=== PATIENT | male | born 1975 | race Caucasian/White ===

== ENCOUNTER 2021-07-18 08:00 | Outpatient (RCR) | payer BC, SELFPAY ==
[2021-07-18 11:05] VITALS: BP 114/78; PULSE 76; RESP 20; TEMP 35.8; O2SAT 94
[2021-07-18] MEDS: diphenhydrAMINE HCl CAP 25 MG CAPSULE PO (11:11)
[2021-07-18] MEDS: FAMOTIDINE 20 MG TABLET PO (11:11)
[2021-07-18] MEDS: ACETAMINOPHEN 325 MG TABLET 650 MG PO (11:11)
[2021-07-18 12:39] VITALS: BP 124/66
--- NOTE | 2021-07-19 10:54 | PC.NURSE ---
Called and spoke to Mr. Guerrero and he stated he feels pretty good except for a headache and maybe being dehydrated. He stated he is not drinking much, so I recommended if he can not get fluids in he needs to go to the ER, for hydration. He verbalized the understanding. He has no other questions at this time.
== END 2021-07-18 17:00 ==
LOC: AMCINF 08:00
PROVIDERS: PCP Physician Assistant Medical; Visit Provider Internal Medicine Hematology & Oncology
DX: U07.1 COVID-19 (principal)
CPT/HCPCS: A9270; M0243; Q0243

== ENCOUNTER 2023-04-08 14:12 | Outpatient (NON) | payer BC, SELFPAY | END 2023-04-08 14:13 | disposition home or self-care (01) | LOC: ANHLAB 04-09 14:13 | PROVIDERS: PCP Physician Assistant Medical; Visit Provider Nurse Practitioner | DX: C44.1192 Basal cell carcinoma of skin of left lower eyelid, including canthus (principal) | CPT/HCPCS: 88305 ==

== ENCOUNTER 2023-05-02 03:15 | Day surgery (SDC) | payer BC, SELFPAY ==
[2023-04-23 17:56] VITALS: BMI 33.0
--- NOTE | 2023-04-23 17:57 | PC.NURSE ---
Report to the Outpatient Waiting Room, entrance under the green pavilion located off [facility], at time ___0600____ on date ____5-29-11___. Planned Procedure Time: 729___. Time changes happen often and if your time is changed the preop area will call you the afternoon before. - You and your visitor will be asked to self-screen and do not enter if you have any COVID symptoms. - A mask is optional within the hospital at this time. Patients may have clear liquids (water, carbonated beverages, clear teas, apple juice) until 3 hours prior to surgery with a maximum of 20 ounces. - No food from midnight until time of surgery - Take the following medications with a SIP of water the morning of surgery: n/a DO NOT STOP ANY OF YOUR OTHER PRESCRIPTION MEDICATIONS PRIOR TO SURGERY ?EXCEPT THE FOLLOWING Medications to discontinue per physician n/a Date to take last dose n/a Please no make-up, nail nauruan, hairspray, perfume, deodorant, or body powder the day of surgery. No jewelry (including any body piercings) or valuables the day of surgery, leave them at home. Please take a shower or bath the night before, or the morning of, surgery with an antibacterial soap. Wear comfortable, loose fitting clothing. Children are encouraged to wear pajamas. - Jewelry must be removed prior to entering the operating room. Rings and piercings that are not removed may be cut off. - The hospital will not accept responsibility for valuables. - Please leave all valuables, including medications, at home the day of surgery. If you are going home after surgery, a licensed hog driver must drive you home. - NO public transportation without another adult if you receive anesthesia. - We recommend that an adult stay with you for 24 hours following discharge. - We also recommend that you do not drive, make important decision, drink alcoholic beverages, or take any drugs that were not prescribed by your health care provider for at least 24 hours after your discharge time. Follow any additional instructions given to you from your surgeon. If you or anyone in your household have experienced Covid symptoms in the past week, please notify your surgeon or the nurse liaison at the phone number below for possible testing. Telephone instructions given to Toni (patient) and asked if any additional questions and then verbalized understanding. Patient advised to call surgeon office or pre surgery nurse liaison [phone] if any additional questions.
--- NOTE | 2023-05-01 13:26 | WPDANESEPPF ---
Anes - Initial Pre Proc Eval Procedure: Operation Date: 05/02/23 07:30 Proposed Procedures p Excision of Basal Cell Carcinoma Left Lower Eyelid with Frozen Section - Gilson Linton MD Date/Time: 05/01/23 13:26 Surgeon: Gilson Linton MD Pre Op Diagnosis: basal cell carcinoma left lower eyelid Patient Data Age: 48 Gender: M Height: 1.85 m Weight: 113.6 kg Allergies Allergy/AdvReac Type Severity Reaction Status Date / Time No Known Allergies Allergy Verified 05/01/23 10:43 Home Medications Medication Instructions Recorded Confirmed Type No Home Medications 04/23/23 04/23/23 History Patient hx anesthesia problems: none Family hx anesthesia problems: none Results Review: All pre-operative results and documents have been reviewed as part of the pre-operative evaluation. 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 Surgical History Surgical History History of ankle surgery History of carpal tunnel release History of elbow surgery History of mandibular surgery Hx of arthroscopy of right knee 2002 Family History Family History Father Skin cancer (melanoma) Grandparent Skin cancer (melanoma) Other High cholesterol Social History Social History Smoking status: Never smoker Alcohol intake: current Drinks per week: 1 Substance use: never Substance use type: does not use Lack of Transportation: No Lack of Food: Never True Current Housing: I Have Housing Concerned About Future Housing: No Difficulty Paying Gas/Electric Bills: No Difficulty Paying for Meds: No Currently Unemployed: No Education: Associate Degree Living arrangements: with family 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/Education: 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 Informed Consent: The patient's anesthetic plan and its attendant risks and benefits were discussed with the patient/family/POA. Questions were solicited and answers provided to the satisfaction of the patient/family/POA.
[2023-05-02] VITALS (8 sets, daily range): BP systolic 126–139; BP diastolic 83–90; PULSE 66–74; RESP 12–16; TEMP 36.3; O2SAT 93–99
--- NOTE | 2023-05-02 07:10 | P.HPUP_ITS ---
History and Physical Update Update Date/Time: 05/02/23 07:10 History and Physical has been reviewed, including an updated exam of the patient. Will proceed as scheduled. He states on his left cheek for many years he has had a lesion evaluated that bleeds occasionally when shaves and has been told it is benign. There has been no change. Discussed I will eval in the OR and he has provided consent if noted worrisome to proceed with biopsy. He understands despite best efforts exami nation is never 100% accurate and skin cancers can be missed even in an operating room with magnification. Risks, benefits, and alternatives have been discussed and questions answered. Patient agrees to proceed with procedure.
--- NOTE | 2023-05-02 07:13 | W.PM.PROC2 ---
Procedure Note - Detailed Date of Procedure 05/02/23 Pre-op Diagnosis basal cell carcinoma left lower eyelid Post-op Diagnosis Same Procedure Performed Excision left lower eyelid BCC 0.6 cm with 0.8cm closure Surgeon Gilson Linton MD Anesthesia General Findings BCC with frozen section left lower eyelid - pathology with clear margins. No left check worrisome lesion identified in the OR with magnification. Description of Procedure Preoperative Risks, benefits, alternatives were discussed in extensive detail. I want to be very realistic about the risks involved as well as expectations. Reviewed consent in detail. Discussed aftercare and what to monitor for. Made sure I answered all questions answered to satisfaction and consent obtained. He was taken to the operating room placed suppine on the operating room table. Anesthesia provided by anesthesia. Prepped and draped in a standard sterile fashion. Eye irrigated with BSS Surgical time out was taken. Tetracaine eye drops installed and a corneal protector placed. 1% lidocaine and 0.25% bupivacaine with epi was used to anesthetize locally. Lesion was excised and sent to pathology until we had clear margins including tarsal margin. The tarsal place was closed with 6-0 Vicryl followed by 6-0 Nylon. Corneal protector removed and irrigated with BSS. Tolerated well. Estimated Blood Loss 5 Drains No Packing No Pathology Yes (Left lower eyelid BCC) Complications No immediate complications Condition Stable Disposition PACU
[2023-05-02] MEDS: ceFAZolin 2 GM/D5W 50 ML 2 GM/50 ML BAG IVPB (07:28)
[2023-05-02] MEDS: LACTATED RINGERS 1,000 ML 30 ML IV CONT (07:30)
[2023-05-02] MEDS: LIDO 1%/EPINEPHRINE 1:100,000 20 ML VIAL INFILTRATE (08:02)
[2023-05-02] MEDS: BUPivacaine HCL 0.25% PF 30 ML VIAL INFILTRATE (08:03)
--- NOTE | 2023-05-02 08:10 | SUR.OPER ---
Frozen section sent to Pathology per SHREYAS Hilario. Specimen received by Genny in Path at 07:57. Pathologist will call with results.
--- NOTE | 2023-05-02 08:24 | SUR.OPER ---
Per Dr. Curry margins on specimen are clear.
== END 2023-05-02 09:50 | disposition home or self-care (01) ==
PROVIDERS: PCP Physician Assistant Medical; Visit Provider Surgery Plastic and Reconstructive Surgery
PROC: (CPT 11641; principal; 2023-05-02 07:30)
DX: C44.1192 Basal cell carcinoma of skin of left lower eyelid, including canthus (principal); G47.33 Obstructive sleep apnea (adult) (pediatric); E66.9 Obesity, unspecified; Z68.34 Body mass index [BMI] 34.0-34.9, adult
CPT/HCPCS: 11641; 12051; 88305; 88331; 88332; A9270; J0690; J1100; J2250; J2405; J2704; J3010; J7120

== ENCOUNTER 2023-05-27 13:02 | Outpatient (NON) | payer BC, SELFPAY | END 2023-05-27 13:03 | disposition home or self-care (01) | LOC: ANHLAB 05-28 13:06 | PROVIDERS: PCP Physician Assistant Medical; Visit Provider Nurse Practitioner | DX: D48.5 Neoplasm of uncertain behavior of skin (principal) | CPT/HCPCS: 88305 ==

== ENCOUNTER 2024-06-15 13:43 | Outpatient (CLI) | payer BC, SELFPAY ==
[2024-06-15 15:27] LABS: Basophils Percent Auto 0.1 % (0.2-1.2); Hematocrit 44.7 % (42.0-52.0); Hemoglobin 15.8 g/dL (14.0-18.0); Immature Granulocyte Absolute 0.08 K/mm3 (0.00-0.031); Immature Granulocyte Percent A 0.4 % (0-0.5); Lymphocytes Absolute Auto 0.91 K/mm3 (0.9-3.2); Lymphocytes Percent Auto 4.7 % (18.3-44.2); Mean Corpuscular HGB Conc 35.3 g/dl (32-36); Mean Corpuscular Hemoglobin 30.7 pg (26-34); Mean Platelet Volume 9.1 fl (7.4-10.4); Monocytes Absolute Auto 0.5 K/mm3 (0.1-0.6); Monocytes Percent Auto 2.8 % (2.6-8.5); Neutrophils Absolute Auto 17.8 K/mm3 (1.3-6.7); Platelet Count Result 272 k/mm3 (150-375); Red Blood Count 5.14 M/mm3 (4.6-6.20); Red Cell Distribution Width 13.1 % (11.5-14.5); White Blood Count 19.4 K/mm3 (4.5-10.0)
[2024-06-15 15:33] LABS: Urine Cotinine NEGATIVE
[2024-06-15 15:35] LABS: Albumin Level 4.8 g/dL (3.5-5.1); Anion Gap 14 mmol/L (4-12); Blood Urea Nitrogen 16 mg/dL (9-20); Carbon Dioxide 21 mmol/L (22-30); Chloride 103 mmol/L (98-107); Estimated Glomerular Filt Rate > 60; Glucose 187 mg/dL (65-110); Potassium 3.9 mmol/L (3.4-5.0); Sodium 138 mmol/L (137-145)
[2024-06-15 15:35] LABS: Add Urine Microscopic? NO; Appearance Urine Clear (Clear); Bilirubin Urine Negative (Negative); Blood Urine Negative (Negative); Color Urine Yellow (Yellow); Glucose Urine UA Trace mg/dL (Negative); Ketones Urine Trace mg/dL (Negative); Leukocyte Esterase Ur Negative LEU/UL (Negative); Nitrate Urine Negative (Negative); Protein Urine Negative (Negative); Specific Grav Ur 1.023 (1.001-1.035); Urobilinogen Urine 0.2 mg/dL (<2.0); pH Urine 5.5 (5.0-9.0)
[2024-06-15 15:40] LABS: Prothrombin Time 13.2 Seconds (11.1-14.7)
[2024-06-15 15:42] LABS: Partial Thromboplastin Time 23.4 Seconds (22.3-36.8)
[2024-06-15 15:47] LABS: Platelet Estimate Adequate (Adequate); Schistocytes None Seen
[2024-06-15 16:02] LABS: Hemoglobin A1C 5.5 % (<5.7)
[2024-06-15 16:40] LABS: MRSA (PCR) NOT DETECTED (NOT DETECTE)
== END 2024-06-15 13:44 | disposition home or self-care (01) ==
PROVIDERS: Visit Provider Orthopaedic Surgery
DX: M17.11 Unilateral primary osteoarthritis, right knee (principal)
CPT/HCPCS: 80048; 80307; 81003; 82040; 83036; 85025; 85610; 85730; 87641

== ENCOUNTER 2024-06-29 00:33 | Day surgery (SDC) | payer BC, SELFPAY ==
[2024-06-15 13:57] VITALS: BMI 36.6
--- NOTE | 2024-06-15 14:38 | PC.NURSE ---
Report to the Outpatient Waiting Room, entrance under the green pavilion located off [facility], at time _10 AM on date06/29/24 . Planned Procedure Time: _1200 NOON .? Time changes happen often and if your time is changed the preop area will call you the afternoon before. - You and your visitor will be asked to self-screen and do not enter if you have any COVID symptoms. Please call surgeon if you need to reschedule. - A mask is optional within the hospital at this time. Patients may have clear liquids (water, carbonated beverages, clear teas, apple juice) until 3 hours prior to surgery( 9 AM) with a maximum of 20 ounces. - No food from midnight until time of surgery and no smoking - Infants may have breast milk until 4 hours before surgery, infant formula 6 hours prior to surgery. - Children will be allowed to drink immediately following surgery.? If applicable, please bring a bottle or sippy cup to assist with drinking. Juice, water, soda, and popsicles are readily available.? For infants on formula, please bring formula the day of surgery.? Pacifiers are allowed. Take only the following medications with a SIP of water on the morning of surgery: __GABAPENTIN DO NOT STOP ANY OF YOUR OTHER PRESCRIPTION MEDICATIONS PRIOR TO SURGERY EXCEPT THE FOLLOWING Medications to discontinue per physician _HOLD ___DICLOFENAC AND ADVIL__PER DR BUSCH MAY TAKE TYLENOL IF NEEDED FOR PAIN Please no make-up, nail nepali, hairspray, perfume, deodorant, or body powder the day of surgery.? No jewelry (including any body piercings) or valuables the day of surgery, leave them at home.? Please take a shower or bath the night before, or the morning of, surgery with an antibacterial soap.? Wear comfortable, loose fitting clothing.? Children are encouraged to wear pajamas. - Jewelry must be removed prior to entering the operating room.? Rings and piercings that are not removed may be cut off. - The hospital will not accept responsibility for valuables.? - Please leave all valuables, including medications, at home the day of surgery. If you are going home after surgery, a licensed cab driver must drive you home.? - NO public transportation without another adult if you receive anesthesia. - We recommend that an adult stay with you for 24 hours following discharge. - We also recommend that you do not drive, make important decision, drink alcoholic beverages, or take any drugs that were not prescribed by your health care provider for at least 24 hours after your discharge time. For Pediatric surgeries, we recommend two adults accompany the child home. Follow any additional instructions given to you from your surgeon. VERBAL AND WRITTEN instructions given to _PATIENT and asked if any additional questions and then verbalized understanding. Patient advised to call surgeon office or pre surgery nurse liaison [phone] if any additional questions.
[2024-06-15 14:55] VITALS: BP 136/92; PULSE 92; RESP 18; TEMP 37.3; O2SAT 98
[2024-06-29] VITALS (15 sets, daily range): BP systolic 111–158; BP diastolic 78–98; PULSE 75–93; RESP 10–19; TEMP 35.7–37; O2SAT 93–100
--- NOTE | ~2024-06-29 | XR_ITS ---
EXAMINATION: [id number] DATE: 06/29/2024 15:04 INDICATION: Postoperative evaluation following right total knee arthroplasty. TECHNIQUE: Anteroposterior and lateral views of the right knee were obtained. COMPARISON: 05/01/2023 FINDINGS: Right total knee arthroplasty without patellar resurfacing appears well seated and in near anatomic a lignment. Unchanged heterotopic ossicle along the deep margin of the tibial insertion of the distal p atellar tendon. No fractures identified. Expected postoperative subcutaneous and intra-articular gas. The prior loose osteochondral body at the suprapatellar pouch is been removed. IMPRESSION: 1. Right total knee arthroplasty, negative for postoperative purposes. Reviewed, dictated and finalized at location B. 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
[2024-06-29] MEDS: ACETAMINOPHEN 500 MG TABLET 1000 MG PO (10:35)
--- NOTE | 2024-06-29 10:36 | WPDHPUPDATE1 ---
History and Physical Update Update Date/Time: 06/29/24 10:36 History and Physical has been reviewed, including an updated exam of the patient. There are NO changes in the patient's condition. Risks, benefits, and alternatives have been discussed and questions answered. Patient agrees to proceed with procedure.
[2024-06-29] MEDS: LACTATED RINGERS 1,000 ML 30 ML IV CONT ×2 (10:40→14:48)
[2024-06-29] MEDS: TRANEXAMIC ACID 1,000MG/ISO100 1,000 MG/100 ML BAG 200 MG IVPB (10:40)
--- NOTE | 2024-06-29 11:30 | WPDANESEPPF ---
Anes - Initial Pre Proc Eval Procedure: Operation Date: 06/29/24 12:00 Proposed Procedures p Right Total Knee Arthroplasty - Onel Henry MD Date/Time: 06/29/24 11:30 Surgeon: Onel Henry MD Pre Op Diagnosis: right knee djd Patient Data Age: 49 Gender: M Height: 1.85 m Weight: 122.8 kg Last Vital Signs Temp 97.6 F 06/29/24 10:00 Pulse 86 06/29/24 10:00 Resp 18 06/29/24 10:00 BP 118/92 H 06/29/24 10:00 Pulse Ox 98 06/29/24 10:00 O2 Del Method Room Air 06/29/24 10:00 Allergies Allergy/AdvReac Type Severity Reaction Status Date / Time No Known Allergies Allergy Verified 06/29/24 10:03 Home Medications Medication Instructions Recorded Confirmed Type diclofenac sodium 75 mg 75 mg PO BID #60 tabs 05/10/24 06/29/24 Rx tablet,delayed release cetirizine 10 mg tablet (Zyrtec) 10 mg PO DAILY 06/15/24 06/29/24 History gabapentin 300 mg capsule 300 mg PO TID 06/15/24 06/29/24 History ibuprofen 200 mg tablet (Advil) 400 mg PO Q6H PRN Pain 06/15/24 06/29/24 History Laboratory Tests 06/29/24 10:27 WBC 8.0 K/mm3 (4.5-10.0) Blood Type A Negative Antibody Screen Pending Patient hx anesthesia problems: none Family hx anesthesia problems: none Results Review: All pre-operative results and documents have been reviewed as part of the pre-operative evaluation. 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 Surgical History Surgical History History of ankle surgery History of carpal tunnel release History of elbow surgery History of mandibular surgery Hx of arthroscopy of right knee 2002 Family History Family History Father Skin cancer (melanoma) Grandparent Skin cancer (melanoma) Other High cholesterol Social History Social History Smoking status: Never smoker Additional smoking assessment comments: DENIES ANY FORM OF TOBACCO USE Alcohol intake: current Drinks per week: 1 Substance use: never Substance use type: does not use Lack of Transportation: No Lack of Food: Never True Current Housing: I Have Housing Concerned About Future Housing: No Difficulty Paying Gas/Electric Bills: No Difficulty Paying for Meds: No Currently Unemployed: No Education: Associate Degree Living arrangements: with family 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 ) Neurological: alert and oriented Last oral intake: >/= 8 hours ASA classification: II Emergent: no Anesthetic plan: proceed Anesthesia type and monitoring: general LMA and standard monitoring Results Review: All pre-operative results and documents have been reviewed as part of the pre-operative evaluation. ALON on CPAP. Informed Consent: The patient's anesthetic plan and its attendant risks and benefits were discussed with the patient/family/POA. Questions were solicited and answers provided to the satisfaction of the patient/family/POA.
[2024-06-29] MEDS: ceFAZolin 3 GM/D5W 100 ML 100 ML IVPB (12:13)
--- NOTE | 2024-06-29 12:14 | WPDANESPNB ---
Anes - Peripheral Nerve Block Date/Time: 06/29/24 12:14 I have discussed with the patient/family/POA the placement of a peripheral nerve block for post-operative pain management, including associated risks, benefits, complications, and side effects. Alternative methods of post-operative analgesia were detailed. Questions were solicited and answers provided to the satisfaction of the patient/family/POA. Time-Out: A pre-procedural Time-Out was completed immediately before starting the procedure and confirmed: Patient Identification, Site, Procedure, Patient Position and the Availability of Requisite Equipment. Clinical Indications: Acute post-operative pain management requested by the operative surgeon. Nerve Block Insertion Note Anes-nerve block: adductor canal right Patient position: supine Needle: 22 gauge, stimulating, insulated echogenic needle. Needle length: 80 mm Technique: ultrasound Injectate: other (Bupiv 0.5% 15 mls. ) Observations: tolerated well Complications: none Procedure start time:: 1202 Procedure end time:: 1210
[2024-06-29] MEDS: SODIUM CHLORIDE 0.9% IV 37.7 ML, MORPHINE SULFATE INJ (*CRX) 2 MG, ROPivacaine HCL 1% 2... INFILTRATE (12:53)
[2024-06-29] MEDS: KETOROLAC 15 MG/ML VIAL (*BKC) IV PUSH ×2 (14:19→17:19)
--- NOTE | 2024-06-29 14:53 | W.PM.PROC2 ---
Procedure Note - Detailed Date of Procedure 06/29/24 Pre-op Diagnosis right knee djd Post-op Diagnosis Same Procedure Performed R TKA Surgeon Onel Henry MD Anesthesia General Description of Procedure THE RIGHT KNEE WAS PREPPED AND DRAPED IN THE STERILE FASHION. THERE WAS A 10 DEGREE FLEXION CONTRACTURE. A MIDLINE SKIN INCISION WAS MADE. A MEDIAL PARAPATELLAR ARTHROTOMY WAS MADE. THE PATELLA WAS EVERTED. THERE WAS TRICOMPARTMENT DJD. AN INTRAMEDULLARY ROSALVA WAS PLACED IN THE FEMUR. A DISTAL FEMORAL CUT WAS MADE IN 5 DEGREES OF VALGUS REMOVING APPROXIMATELY 9 MM OF BONE FROM THE DISTAL FEMUR. THE FEMUR WAS SIZED TO 7. A 7 FEMORAL CUTTING BLOCK WAS PLACED IN 3 DEGREES OF EXTERNAL ROTATION AND IN ALIGNMENT WITH CED'S LINE AND THE TRANSEPICONDYLAR AXIS. ANTERIOR POSTERIOR AND CHAMFER CUTS WERE MADE. THE CUTS WERE EXCELLENT. NEXT AN INTRAMEDULLARY CUTTING GUIDE WAS PLACED IN THE TIBIA. A TRANS TIBIAL CUT WAS MADE ALONG THE LONG AXIS OF THE TIBIA. APPROXIMATELY 10 MM OF BONE WAS REMOVED FROM THE HIGH SIDE OF THE TIBIA. THE TIBIA WAS THEN PLANED TO A SMOOTH SURFACE. POSTERIOR FEMORAL OSTEOPHYTES WERE REMOVED FROM THE FEMORAL CONDYLES. A 7 TIBIAL TRIAL WAS PLACED IN ALIGNMENT WITH THE 1/3 MEDIAL ASPECT OF THE TIBIAL TUBERCLE. THEN A 7 FEMORAL TRIAL COMPONENT WAS PLACED. BOTH HAD EXCELLENT FITS. EVENTUALLY AN 11 MM CR POLYETHYLENE TRIAL COMPONENT WAS PLACED. THE KNEE WAS TAKEN THROUGH A RANGE OF MOTION. THE KNEE CAME OUT TO FULL EXTENSION. THERE WAS NO ABNORMAL TILT TO THE PATELLA. THERE WAS GOOD A/P AND VARUS/VALGUS STABILITY. THERE WAS NO EXCESSIVE ROLL BACK WITH FLEXION. THE TRIAL COMPONENTS WERE REMOVED. THEN A PIOTR TRIATHLON 7 FEMORAL COMPONENT AND 7 TIBIAL COMPONENT WITH AN 11 CR POLYETHYLENE COMPONENT WERE PRESS FIT INTO PLACE. THE KNEE WAS TAKEN THROUGH A ROM AGAIN AND FOUND TO BE STABLE WITH NO PATELLA TILT NO EXCESSIVE ROLL BACK WITH FLEXION AND GOOD STABILITY WITH COMPLETE AND FULL EXTENSION. THE KNEE WAS IRRIGATED WITH STERILE BETADINE AND WATER FOR ABOUT 3 MINUTES. THE BLEEDERS WERE CAUTERIZED. THE ARTHROTOMY WAS REPAIRED WITH NUMBER 1 VICRYL. THE SUB CUTANEOUS LAYER WITH 2-0 VICRYL AND THE SKIN WITH 3-0 STRATAFIX AND DERMABOND. A STERILE DRESSING WAS APPLIED. PATIENT WAS EXTUBATED. Estimated Blood Loss -150.0 Pathology None sent Complications No immediate complications Condition Stable Disposition PACU
[2024-06-29] MEDS: fentaNYL CITRATE INJ (*CRX) 100 MCG/2 ML VIAL 25 MCG IV PUSH ×6 (14:54→15:28)
--- NOTE | 2024-06-29 16:26 | ADMGEN ---
This patient, Toni Guerrero, was admitted to [facility] Surg Room 321-01. Patient/family oriented to hospital policies and general routines including ID bracelet, bed and alarms, visiting hours, pain management, procedures, bathroom and other care routines, personal items, smoking policy, room service/diet, and visiting hours. Information on how to activate the Rapid Response Team has been discussed. Patient/Family are encouraged to report perceived risks to care and to ask questions if they do not understand what they are told or what they should do.
[2024-06-29] MEDS: GABAPENTIN 300 MG CAPSULE PO (17:20)
[2024-06-29] MEDS: FAMOTIDINE 20 MG TABLET PO (20:05)
[2024-06-29] MEDS: ceFAZolin 2 GM/D5W 50 ML 2 GM/50 ML BAG IVPB (20:06)
[2024-06-29] MEDS: ASPIRIN 325 MG ENTERIC TABLET PO (20:06)
[2024-06-30 03:43] VITALS: BP 130/77; PULSE 98; RESP 18; TEMP 36.6; O2SAT 97
[2024-06-30] MEDS: ceFAZolin 2 GM/D5W 50 ML 2 GM/50 ML BAG IVPB ×2 (04:43→11:02)
[2024-06-30] MEDS: KETOROLAC 15 MG/ML VIAL (*BKC) IV PUSH (05:41)
[2024-06-30 06:53] LABS: Basophils Percent Auto 0.1 % (0.2-1.2); Eosinophils Percent Auto 0.1 % (0-4.4); Hematocrit 38.5 % (42.0-52.0); Hemoglobin 13.5 g/dL (14.0-18.0); Immature Granulocyte Percent A 0.5 % (0-0.5); Lymphocytes Absolute Auto 1.16 K/mm3 (0.9-3.2); Lymphocytes Percent Auto 6.1 % (18.3-44.2); Mean Corpuscular HGB Conc 35.1 g/dl (32-36); Mean Corpuscular Hemoglobin 31.3 pg (26-34); Mean Corpuscular Volume 89.1 fl (80-100); Mean Platelet Volume 9.1 fl (7.4-10.4); Monocytes Absolute Auto 1.4 K/mm3 (0.1-0.6); Monocytes Percent Auto 7.2 % (2.6-8.5); Neutrophils Absolute Auto 16.3 K/mm3 (1.3-6.7); Platelet Count Result 234 k/mm3 (150-375); Red Blood Count 4.32 M/mm3 (4.6-6.20); Red Cell Distribution Width 13.2 % (11.5-14.5)
[2024-06-30 07:06] LABS: Anion Gap 4 mmol/L (4-12); Blood Urea Nitrogen 10 mg/dL (9-20); Calcium 8.6 mg/dL (8.4-10.2); Carbon Dioxide 27 mmol/L (22-30); Chloride 105 mmol/L (98-107); Estimated CRCL calculation 111 ml/min; Estimated Glomerular Filt Rate > 60; Glucose 111 mg/dL (65-110); Potassium 4.1 mmol/L (3.4-5.0); Sodium 136 mmol/L (137-145)
[2024-06-30] MEDS: SENNA/DOCUSATE SODIUM TABLET 2 TAB PO ×2 (08:20→16:05)
[2024-06-30] MEDS: ASPIRIN 325 MG ENTERIC TABLET PO (08:20)
[2024-06-30] MEDS: FAMOTIDINE 20 MG TABLET PO (08:20)
[2024-06-30] MEDS: GABAPENTIN 300 MG CAPSULE PO ×3 (08:21→16:05)
[2024-06-30 10:06] VITALS: BP 134/91; PULSE 85; RESP 20; TEMP 36.5; O2SAT 99
[2024-06-30 12:00] VITALS: BP 148/77; PULSE 90; RESP 22; TEMP 37.3; O2SAT 99
--- NOTE | 2024-06-30 13:58 | WPDANESPN ---
Anes - Prog Note Post-Op Date/Time: 06/30/24 13:58 Cardiovascular status: normal Respiratory status: normal Airway patency: baseline Mental status: baseline Post-Op hydration status: normal Vital Signs: Last Vital Signs Temp 37.3 C 06/30/24 12:00 Pulse 90 06/30/24 12:00 Resp 22 H 06/30/24 12:00 BP 148/77 H 06/30/24 12:00 Pulse Ox 99 06/30/24 12:00 O2 Del Method Room Air 06/30/24 07:45 O2 Flow Rate 2 06/29/24 16:49 Pain Score (VAS): 0 I/O: Intake & Output 06/29/24 06/30/24 06/30/24 23:59 07:59 15:59 Intake Total 287 50 390 Output Total 500 600 Balance 287 -450 -210 Laboratory Tests 06/30/24 06:30 06/30/24 06:30 06/30/24 06:30 WBC 19.0 H RBC 4.32 L Hgb 13.5 L Hct 38.5 L MCV 89.1 MCH 31.3 MCHC 35.1 RDW 13.2 Plt Count 234 MPV 9.1 Immature Gran % (Auto) 0.5 Neut % (Auto) 86.0 H Lymph % (Auto) 6.1 L [place] % (Auto) 7.2 Eos % (Auto) 0.1 Baso % (Auto) 0.1 L Lymph # (Auto) 1.16 [place] # (Auto) 1.4 H Eos # (Auto) 0.0 Baso # (Auto) 0.0 Abs Immat Gran (auto) 0.10 H Absolute Neuts (auto) 16.3 H Absolute Nucleated RBC 0.000 Nucleated RBC % 0.0 Sodium 136 L Potassium 4.1 Chloride 105 Carbon Dioxide 27 Anion Gap 4 BUN 10 D Creatinine 1.00 Estim Creat Clear Calc 111 Estimated GFR > 60 Glucose 111 H Calcium 8.6 Post-procedural complaints: none Patient Feedback: Patient satisfied with anesthetic care.
[2024-06-30 14:06] VITALS: BP 148/77; PULSE 90; RESP 22; TEMP 37.2; O2SAT 100
[2024-06-30 16:05] VITALS: TEMP 37.9
[2024-06-30] MEDS: ACETAMINOPHEN 500 MG TABLET PO (16:05)
--- NOTE | 2024-06-30 16:15 | PM.DS ---
DS: Admitting Diagnosis Discharge Date 06/30/24 Admitting Diagnosis RIGHT KNEE DJD DS: Discharge Diagnosis Discharge Diagnosis (1) Right knee DJD: Qualifiers: Osteoarthritis type: primary Qualified Code(s): M17.11 - Unilateral primary osteoarthritis, right knee Code(s): M17.11 - Unilateral primary osteoarthritis, right knee Status: Acute Assessment and Plan: POD 1 DOING WELL. HE DENIES ANY CALF OT THIGH PAIN. OK TO DC HOME HE WILL START PT NEXT WEEK. HE WAS INSTRUCTED ON DRESSING CHANGES AND THE NEED FOR DAILY ASPIRIN FOR 3 WEEKS FOR DVT PROPHYLAXIS. HE WILL F/U IN 3 WEEKS DS: Summary Hospital Course Reason for hospitalization: RIGHT TKA Hospital Course: PATIENT WAS ADMITTED S/P TOTAL KNEE ARTHROPLASTY FOR POSTOPERATIVE MEDICAL MANAGEMENT, PAIN CONTROL AND MOBILIZATION WITH PHYSICAL AND OCCUPATIONAL THERAPY. THE PATIENT PROGRESSED WELL WITH PT/OT. LABS AND VITALS REMAINED STABLE AND PAIN WELL CONTROLLED. THE PATIENT HAS BEEN CLEARED TO BE DISCHARGED HOME. FOLLOW UP APPOINTMENT SCHEDULED. DISCHARGE INSTRUCTIONS DISCUSSED AT LENGTH WITH THE PATIENT. MEDICATIONS REVIEWED. Status at Discharge Cognitive/behavioral status at discharge: STABLE Time Spent with Patient Time attestation: Total time spent providing and/or coordinating discharge services: Exam Extrem: Other: VSS AFEBRILE DRESSING NV INTACT NEG HOMANS SIGN, CALF AND THIGH SOFT NON TENDER DS: Data Data Completed and Pending Labs on day of discharge: Labs from last 24 hours 06/30/24 06:30 WBC 19.0 H RBC 4.32 L Hgb 13.5 L Hct 38.5 L MCV 89.1 MCH 31.3 MCHC 35.1 RDW 13.2 Plt Count 234 MPV 9.1 Immature Gran % (Auto) 0.5 Neut % (Auto) 86.0 H Lymph % (Auto) 6.1 L [place] % (Auto) 7.2 Eos % (Auto) 0.1 Baso % (Auto) 0.1 L Lymph # (Auto) 1.16 [place] # (Auto) 1.4 H Eos # (Auto) 0.0 Baso # (Auto) 0.0 Abs Immat Gran (auto) 0.10 H Absolute Neuts (auto) 16.3 H Absolute Nucleated RBC 0.000 Nucleated RBC % 0.0 Sodium 136 L Potassium 4.1 Chloride 105 Carbon Dioxide 27 Anion Gap 4 BUN 10 D Creatinine 1.00 Estim Creat Clear Calc 111 Estimated GFR > 60 Glucose 111 H Calcium 8.6 Procedures/Treatments: RIGHT TKA Discharge Plan Discharge Patient Disposition: Home, Self-Care Discharge Instructions: ONEL HENRY M.D. [facility] [address] [place] [address] POST OPERATIVE DISCHARGE INSTRUCTIONS FOLLOWING TOTAL KNEE REPLACEMENT SURGERY ? Your dressing will be changed prior to your discharge. You will be sent home with one additional dressing to be changed on post op day 7 by the home health RN. Your kandy will be removed on the 14th day after surgery and steri-strips will be placed. Please practice good hand hygiene and do not touch your incision in order to prevent infection. ? You may shower with your dressing but do not submerge in a bath tub. ? Do not drive or operate machinery until you are released by Dr. Henry. ? Do not walk without a walker for any reason until you are released by Dr. Henry. ? Continue to use your ice machine. Please use a towel or pillow case to protect your skin before applying your ice machine. ? Do NOT place a pillow under your knee. You may use a pillow from the calf down if needed. This will prevent a flexion contracture postoperatively. ? You may begin use of your CPM machine at home if you have been given one pre-operatively. DO NOT USE WHILE YOU ARE SLEEPING. ? Your first post op appointment was sent to you via mail preoperatively. If you have any questions or are unable to make your appointment, please contact our office for scheduling questions. ? Your medications have been sent to your pharmacy. You have been sent home with pain medication. We have also sent you with a stool softener as narcotics can cause constipation. Please keep this in mind during your postoperative recovery. If you are not experiencing regular bowel movements, please contact our office for further instruction. ? Please contact our office with any questions/concerns regarding your knee at [phone]. TAKE 2 ADULT STRENGTH (325 MG) ASPIRIN A DAY FOR BLOOD CLOT PREVENTION Patient Instructions: Total Knee Replacement (GEN) Follow-up/Referrals: Onel Henry MD [Physician] - Discharge Medications: New oxycodone-acetaminophen [Percocet] 5-325 mg tablet 1 tablet PO Q6H PRN (Reason: pain) Qty: 40 0RF Continued ibuprofen [Advil] 200 mg Tablet 400 mg PO Q6H PRN (Reason: Pain) gabapentin 300 mg capsule 300 mg PO TID cetirizine [Zyrtec] 10 mg Tablet 10 mg PO DAILY diclofenac sodium 75 mg tablet,delayed release (DR/EC) 75 mg PO BID Qty: 60 1RF Patient Comments: PT STATES LAST DOSE 2 WKS AGO
[2024-06-30 16:42] VITALS: TEMP 37.8
== END 2024-06-30 16:50 | disposition home or self-care (01) ==
LOC: ANHSURGERY 09:47 → ANH3MEDSUR 16:23
PROVIDERS: Anesthesiology; Visit Provider Orthopaedic Surgery
PROC: (CPT 27447; principal; 2024-06-29 12:00)
DX: M17.11 Unilateral primary osteoarthritis, right knee (principal); G89.18 Other acute postprocedural pain; G47.33 Obstructive sleep apnea (adult) (pediatric); E66.9 Obesity, unspecified; Z68.35 Body mass index [BMI] 35.0-35.9, adult
CPT/HCPCS: 27447; 64447; 36415; 73560; 80048; 85025; 85048; 86850; 86900; 86901; 97110; 97161; 97165; 97530; A9270; C1713; C1776; J0171; J0690; J1100; J1171; J1885; J2250; J2270; J2405; J2704; J2795; J3010; J7120

== ENCOUNTER 2025-01-10 13:45 | Outpatient (CLI) | payer BC, SELFPAY ==
--- OUTSIDE RECORDS SUMMARY | 2025-01-10 14:04 | XMS_ITS | Referral Summary ---
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 2-4 times a month 06/18/2022 Q2: How many drinks containi ng alcohol do you have on a typical day when you are drinking? 1 or 2 06/18/2022 Q3: How often do you have si x or more drinks on one occasion? 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 file Not on file Last Filed Vital Signs Vital Sign Reading Time Taken Comments Blood Pressure 107/64 07/01/2022 12:05 PM AIR DUCT MECHANIC Pulse 69 07/01/2022 12:10 PM AIR DUCT MECHANIC Temperature 36 C (96.8 F) 07/01/2022 12:10 PM AIR DUCT MECHANIC Respiratory Rate 14 07/01/2022 12:10 PM AIR DUCT MECHANIC Oxygen Saturation 97% 07/01/2022 12:10 PM AIR DUCT MECHANIC Inhaled Oxygen Concentration - - Weight 113.4 kg (250 lb) 02/05/2024 10:31 AM CDT Height 185.4 cm (6' 1) 03/29/2024 2:54 PM CDT Body Mass Index 32.98 02/05/2024 10:31 AM CDT Plan of Treatment Not on file Insurance [employer] [place] [employer] [place] [facility] Care Teams Cushion Padder Relationship Specialty Start Date End Date Laura James PA [address] [place] [id number] PCP - General Physician Provider Relations Representative 04/08/22
--- OUTSIDE RECORDS SUMMARY | 2025-01-10 14:04 | XMS_ITS | Clinical Summary ---
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 Overview (05/28/2022): Added automatically from request for surgery [id number] Localized osteoarthrosis 07/20/2010 Cubital tunnel syndrome 07/20/2010 Surgical History Surgery Date Site/Laterality Comments KNEE ARTHROSCOPY W/ LATERAL RELEASE 08/11/2002 - 003 Right MANDIBLE FRACTURE SURGERY 08/11/1998 - 08/10/1999 VASECTOMY 08/11/2011 - 08/10/2012 ANKLE FRACTURE SURGERY 08/11/2013 - 08/10/2014 Left CARPAL TUNNEL RELEASE 08/11/2008 - 08/10/2009 Right ELBOW SURGERY 08/11/2009 - 08/10/2010 Right FRACTURE SURGERY 1998 FL UPPER GI AIR CONTRAST W KUB 02/27/2024 Left Medical History Medical History Date Comments Arthritis 2004 Allergic rhinitis ALON (obstructive sleep apnea) we ars CPAP Family History Medical History Relation Name Comments No Known Problems Father Alzheimer's disease Maternal Grandfather Blane Dolan Diabetes Maternal Grandfather Blane Dolan Hearing loss Maternal Grandfather Blane Dolan Cancer Maternal Grandmother Thais Dolan No Known Problems Mother Cancer Paternal Grandfather Dale Guerrero Diabetes Paternal Grandfather Dale Guerrero Heart attack Paternal Grandfather Dale Guerrero Vision loss Paternal Grandfather Dale Guerrero Anesthesia problems Neg Hx Relation Name Status Comments Father Alive Maternal Grandfather Blane Dolan Maternal Grandmother Thais Dolan Mother Alive Paternal Grandfather Dale Guerrero Social History Tobacco Use Types Packs/Day Years [...] on file Legal Sex Male 1:50 AM GLASSBLOWER Gender Identity Male 04/23/2022 12:20 PM CDT Sexual Orientation Straight 04/23/2022 12 :20 PM CDT 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 file Not on file Obstetrics History Last Filed Vital Signs Vital Sign Reading Time Taken Comments Blood Pressure 107/64 07/01/2022 12:05 PM GLASSBLOWER Pulse 69 07/01/2022 12:10 PM GLASSBLOWER Temperature 36 C (96.8 F) 07/01/2022 12:10 PM GLASSBLOWER Respiratory Rate 14 07/01/2022 12:10 PM GLASSBLOWER Oxygen Saturation 97% 07/01/2022 12:10 PM GLASSBLOWER Inhaled Oxygen Concentration - - Weight 113.4 kg (250 lb) 02/05/2024 10:31 AM CDT Height 185.4 cm (6' 1) 03/29/2024 2:54 PM CDT Body Mass Index 32.98 02/05/2024 10:31 AM CDT Plan of Treatment Health Maintenance Due Date Last Done Comments Colon Cancer Screening-Colonoscopy 1977 Depression Screening 1977 Hepatitis C Screening 1977 DTaP/Tdap/Td Vaccine (1 - Tdap) 1988 Hepatitis B Screening 1995 Regular Well Visit/Exam 18-64 1995 Influenza Vaccine (Season Ended) 2025 Pneumococcal vaccine <65 Aged Out No longer eligible based on patient's age to complete this topic Insurance [address] [place] [address] [employer] [address] [place] [address] [facility] Care Teams Supervisor Pipeline Relationship Specialty Start Date End Date Laura James PA [address] [place] [address] [phone] PCP - General Physician Family Practice Nurse Practitioner 04/08/22
--- OUTSIDE RECORDS SUMMARY | 2025-01-10 14:04 | XMS_ITS | Clinical Summary ---
Author Organization [facility] Address [address] [place] [address] Care Team Providers Care Certified Medical Transcriptionist Name Role Phone Phyllis Friedman PA-C Primary Care Provider [phone] Source Comments [facility],non-owned Affiliates and Associated Physician Practices is amultiple site organization consisting of ambulatory clinics and hospital sitesin [place], [place], [place] and [place]. This disclosure is being madepursuant to the Care Everywhere program and may not contain all information available regarding this patient. Last updated 18.[facility] Allergies No known active allergies Medications * Be aware that medications may not be up to date on this document. Alwaysverify current medications with the patient. diclofenac sodium EC (Voltaren) 75 MG tablet 1 (one) tablet 4 Active CPAP Use as directed Active sulfamethoxazol e-trimethoprim (Bactrim DS; Septra DS) 800-160 MG tablet Take 1 (one) tablet by mouth 2 times daily for 10 days 20 tablet 5 01/16/20 25 Active gabapentin (Neurontin) 300 MG capsule 1 (one) capsule 4 01/06/20 25 Discontinu ed(Tx Complete) predniSONE (Deltasone) 20 MG tablet 2 tabs QD for 4 days, then 1 tab QD for 4 days. Then 1/2 tab QD for 4 days. Disp QS 1 tablet 4 01/06/20 25 Discontinu ed(Tx Complete) albuterol HFA (ProAir HFA) 108 (90 Base) MCG/ACT inhaler Inhale 2 (two) puffs by mouth every 4 hours as needed 8.5 g 4 01/06/20 Discontinu ed(Tx Complete) benzonatate (Tessalon Perles) 100 MG capsule Take 1 (one) capsule by mouth 3 times daily as needed for Cough 30 capsule 4 01/06/20 Discontinu ed(Tx Complete) Active Problems Problem Noted Date Diagnosed Date Numbness-left foot, going to wash U for back con cerns 05/05/2024 ALON (obstructive sleep apnea) 05/05/2024 Encounters Date Type Department Care Team Description 01/05/2025 4:00 PM CDT Office Visit [facility] - Family Medicine [address] [place] [phone] Phyllis Friedman PA-C Primary osteoarthritis of left knee (Primary Dx); Bug bite, initial encounter-INFECTED; Preop general physical exam from Last 3 Months Social History Tobacco Use Types Packs/Day Years Used Date Smoking Tobacco: Never Smokeless Tobacco: Never Tobacco Cessation:Counseling Given: Not Answered Alcohol Use Standard Drinks/Week Comments Yes 0 (1 standard drink = 0.6 oz pur e alcohol) PHQ-2 Answer Date Recorded Patient Health Questionnaire-2 Score 0 01/05/2025 Sex and Gender Information Value Date Recorded Sex Assigned at Not on file Legal Sex Male 6:34 AM CDT Gender Identity Not on file Sexual Orientation Not on file Last Filed Vital Signs Vital Sign Reading Time Taken Comments Blood Pressure 112/80 01/05/2025 3:41 PM CDT Pulse 90 01/05/2025 3:41 PM CDT Temperature 36.8 C (98.2 F) 01/05/2025 3:41 PM CDT Respiratory Rate - - Oxygen Saturation 99% 01/05/2025 3:41 PM CDT Inhaled Oxygen Concentration - - Weight 128.8 kg (284 lb) 01/05/2025 3:41 PM CDT Height 185.4 cm (6' 1) 01/05/2025 3:41 PM CDT Body Mass Index 37.47 01/05/2025 3:41 PM CDT Plan of Treatment Upcoming Encounters Date Type Department Care Team (Late st Contact Info) Description 01/12/2025 3:45 PM CDT Office Visit [facility] - Family Medicine [address] [place] [phone] Phyllis Friedman PA-C [address] [place] [phone] Health Maintenance Due Date Last Done Comments COLOGUARD (AGES 45-75) - COLON CA SCREENING 1977 COLON MONITORING 1977 COLONOSCOPY - COLON CA SCREENING 1977 CT COLONOGRAPHY - COLON CA SCREENING 1977 Colorectal Cancer Screening 1977 FIT - COLON CA SCREENING 1977 FLEX SIG - COLON CA SCREENING 1977 HIV SCREENING 1992 HEPATITIS C SCREENING 03/17/1995 DTAP/TDAP/TD VACCINES (1 - Tdap) 1996 HEPATITIS B VACCINE (1 of 3 - 19+ 3-dose series) 1996 COVID-19 VACCINE (1 - season) 2024 INFLUENZA VACCINE (Season Ended) 2025 ZOSTER VACCINE (1 of 2) 2027 SCREENING FOR DIABETES 09/21/2027 , 06/16/2024, 06/16/2024, Additional history exists LIPID TESTING 05/07/2029 05/07/2024 DEPRESSION SCREENING Completed 01/05/2025, 05/05/20 24 HIB VACCINE Aged Out No longer eligi ble based on patient's age to complete this topic HPV VACCINE Aged Out No longer eligi ble based on patient's age to complete this topic MENINGOCOCCAL (Group B) VACCINE SHARED DECISION-MAKING Aged Out No longer eligible based on patient's age to complete this topic MENINGOCOCCAL GROUPS A/C/Y/W VACCINE Aged Out No longer eligible based on patient's age to complete this topic PNEUMOCOCCAL VACCINE Aged Out No long er eligible based on patient's age to complete this topic Procedures Procedure Name Priority Date/Time Associated Diagnosis Comments BASIC METABOLIC PANEL (CALCIUM TOTAL) Routine 09/21/2024 3:42 PM CHEMICAL RECLAMATION EQUIPMENT OPERATOR Hypertension, essential LIPID PROFILE Routine 05/07/2024 3:37 PM CDT Routine health maintenance from Last 3 Months or Most Recently Relevant to Health Maintenance Results * (ABNORMAL) BASIC METABOLIC PANEL (CALCIUM TOTAL) (09/21/2024 3:42 PM [facility]) [facility] Glucose 114 70 - 125 mg/dL 09/21/2024 5:[address] [facility] Sodium 138 136 - 145 mmol/L 09/21/2024 5:[address] [facility] Potassium 4.0 3.4 - 5.1 mmol/L 09/21/2024 5:[address] [facility] Chloride 110(H) 98 - 107 mmol/L 09/21/2024 5:[address] [facility] CO2 20(L) 22 - 29 mmol/L 09/21/2024 5:[address] [facility] Calcium 8.92 8.4 - 10.2 mg/dL 09/21/2024 5:[address] [facility] Anion Gap 8 6 - 16 mmol/L 09/21/2024 5:[address] [facility] BUN 14.2 8.4 - 25.7 mg/dL 09/21/2024 5:[address] [facility] Creatinine 0.85 0.72 - 1.25 mg/dL 09/21/2024 5:[address] [facility] eGFR >90 >90 mL/min/1.7 3m2 09/21/2024 5:[address] [facility] Comment:The GFR result was c alculated using the updated CKD-EPI Creatinine Equation (2020). Blood BLOOD SPECIMEN / Unknown Venipuncture / Unknown 09/21/2024 3:42 PM CHEMICAL RECLAMATION EQUIPMENT OPERATOR 09/21/2024 3:42 PM [facility] us Onel Henry MD LAB - CHEMISTRY ORDERABLES Fi nal Result Performing Organization Address City/State/[facility] Co de Phone Number [facility] [address] * (ABNORMAL) LIPID PROFILE (05/07/2024 3:37 PM CDT) [facility] Cholesterol 252(H) <200 mg/dL 05/07/2024 5:06 PM CDT [facility] Triglycerides 289(H) <150 mg/dL 05/07/2024 5:06 PM T [facility] HDL Cholesterol 31(L) >40 mg/dL 5:06 PM T [facility] Chol HDL Ratio 8.1(H) 1.0 - 6.0 05/07/2024 5:06 PM T [facility] LDL Calculated 163(H) 65 - 130 mg/dL 05/07/2024 5:06 PM T [facility] VLDL Calculated 58(H) <=30 mg/dL 5:06 PM T [facility] Blood BLOOD SPECIMEN / Unknown Venipuncture / Unknown 05/07/2024 3:37 PM CDT 05/07/2024 3:37 PM CDT Narrative [facility] - 05/07/2024 5:06 PM CDT Lipid Profile Comment: CHOLESTEROL LEVEL..................CLINICAL INTERPRETATION LESS THAN 200 MG/DL..............................DESIRABLE 200-239 MG/DL..............................BORDERLINE HIGH GREATER THAN 240 MG/DL................................HIGH LDL-CHOLESTEROL LEVEL..............CLINICAL INTERPRETATION LESS THAN 100 MG/DL................................OPTIMAL 100-129 MG/DL.................................NEAR OPTIMAL GREATER THAN 160 MG/DL...........................HIGH RISK HDL RISK LEVEL GREATER THEN 60 MG/DL............................DECREASED 40-60 MG/DL........................................AVERAGE LESS THAN 40 MG/DL...............................INCREASED TRIGLYCERIDE LEVEL..................CLINICAL INTERPRETATION LESS THAN 150 MG/DL...............................DESIRABLE 150-199 MG/DL...............................BORDERLINE HIGH 200-499 MG/DL..........................................HIGH GREATER THAN 500..................................VERY HIGH THE NATIONAL CHOLESTEROL EDUCATION PROGRAM HAS SET THE ABOVE GUIDELINES (REFERANCE VALUES) FOR CHOLESTEROL AND HDL. RISK ASSOCIATED WITH CHOLESTEROL/HDL RATIOS RISK....................MALE RATIO.............FEMALE RATIO 1/2 AVERAGE.................<3.4.......................<3.3 LOW RISK.................... 4.0 ...................... 3.8 AVERAGE..................... 5.0 ...................... 4.5 2X AVERAGE.................. 9.5 ...................... 7.0 3X AVERAGE...................>23........................>11 Phyllis Friedman PA-C LAB - CHEMISTRY ORDERABLES Fin al Result [facility] [address] from Last 3 Months or Most Recently Relevant to Health Maintenance Insurance [facility] [employer] Care Teams Certified Medical Transcriptionist Relationship Specialty Start Date End Date Phyllis Friedman PA-C [address] [place] [phone] PCP - General Physician Notching Machine Operator 05/05/24
[2025-01-10 15:05] LABS: Add Urine Microscopic? NO; Appearance Urine Clear (Clear); Bilirubin Urine Negative (Negative); Blood Urine Negative (Negative); Color Urine Yellow (Yellow); Glucose Urine UA Negative (Negative); Ketones Urine Trace mg/dL (Negative); Leukocyte Esterase Ur Negative LEU/UL (Negative); Nitrate Urine Negative (Negative); Protein Urine Negative (Negative); pH Urine 5.5 (5.0-9.0)
[2025-01-10 15:06] LABS: Basophils Percent Auto 0.6 % (0.2-1.2); Eosinophils Absolute Auto 0.2 K/mm3 (0-0.3); Eosinophils Percent Auto 2.7 % (0-4.4); Hemoglobin 15.3 g/dL (14.0-18.0); Immature Granulocyte Absolute 0.07 K/mm3 (0.00-0.031); Lymphocytes Absolute Auto 1.38 K/mm3 (0.9-3.2); Lymphocytes Percent Auto 20.4 % (18.3-44.2); Mean Corpuscular HGB Conc 33.3 g/dl (32-36); Mean Corpuscular Hemoglobin 30.2 pg (26-34); Mean Corpuscular Volume 90.9 fl (80-100); Mean Platelet Volume 9.3 fl (7.4-10.4); Monocytes Absolute Auto 0.8 K/mm3 (0.1-0.6); Monocytes Percent Auto 11.6 % (2.6-8.5); Neutrophils Absolute Auto 4.3 K/mm3 (1.3-6.7); Neutrophils Percent Auto 63.7 % (45.5-73.1); Platelet Count Result 250 k/mm3 (150-375); Red Blood Count 5.06 M/mm3 (4.6-6.20); Red Cell Distribution Width 13.7 % (11.5-14.5); White Blood Count 6.8 K/mm3 (4.5-10.0)
[2025-01-10 15:15] LABS: INR 1.1
[2025-01-10 15:16] LABS: Partial Thromboplastin Time 27.9 Seconds (22.3-36.8)
[2025-01-10 15:19] LABS: Albumin Level 4.8 g/dL (3.5-5.1); Anion Gap 8 mmol/L (4-12); Blood Urea Nitrogen 16 mg/dL (9-20); Calcium 9.4 mg/dL (8.4-10.2); Carbon Dioxide 26 mmol/L (22-30); Chloride 105 mmol/L (98-107); Estimated Glomerular Filt Rate 53; Glucose 94 mg/dL (65-110); Potassium 4.6 mmol/L (3.4-5.0); Sodium 139 mmol/L (137-145)
[2025-01-10 15:23] LABS: Hemoglobin A1C 4.9 % (<5.7)
[2025-01-10 15:35] LABS: Urine Cotinine NEGATIVE
[2025-01-10 16:11] LABS: MRSA (PCR) NOT DETECTED (NOT DETECTE)
== END 2025-01-10 13:46 | disposition home or self-care (01) ==
LOC: ANHSURGERY 13:49
PROVIDERS: Visit Provider Orthopaedic Surgery
DX: M17.12 Unilateral primary osteoarthritis, left knee (principal); Z01.818 Encounter for other preprocedural examination
CPT/HCPCS: 80048; 80307; 81003; 82040; 83036; 85025; 85610; 85730; 86850; 86900; 86901; 87641

== ENCOUNTER 2025-01-19 01:30 | Day surgery (SDC) | payer BC, SELFPAY ==
--- NOTE | 2025-01-10 13:49 | PC.NURSE ---
Report to the Outpatient Waiting Room, entrance under the green pavilion located off [facility], at time _6 AM on date __01/19/25 . Planned Procedure Time: _7:30 AM .? Time changes happen often and if your time is changed the preop area will call you the afternoon before. - You and your visitor will be asked to self-screen and do not enter if you have any COVID symptoms. Please call surgeon if you need to reschedule. - A mask is optional within the hospital at this time. Patients may have clear liquids (water, carbonated beverages, clear teas, apple juice) until 3 hours prior to surgery ( 4:30 AM) with a maximum of 20 ounces. - No food from midnight until time of surgery and no smoking, or chewing tobacco (or any form of nicotine). No chewing gum, candy or mints. - Take only the following medications with a SIP of water on the morning of surgery: __NONE DO NOT STOP ANY OF YOUR OTHER PRESCRIPTION MEDICATIONS PRIOR TO SURGERY EXCEPT THE FOLLOWING Hold all vitamins and supplements for 3 days per anesthesiologist.LAST DOSE Medications to discontinue per physician HOLD DICLOFENAC PER DR BUSCH MAY TAKE TYLENOL IF NEEDED FOR PAIN Please no make-up, nail indonesian, hairspray, perfume, deodorant, or body powder the day of surgery.? No jewelry (including any body piercings) or valuables the day of surgery, leave them at home.? Please take a shower or bath the night before, or the morning of, surgery with an antibacterial soap.? Wear comfortable, loose fitting clothing.? Children are encouraged to wear pajamas. - Jewelry must be removed prior to entering the operating room.? Rings and piercings that are not removed may be cut off. - The hospital will not accept responsibility for valuables.? - Please leave all valuables, including medications, at home the day of surgery. If you are going home after surgery, a licensed reach lift truck driver must drive you home.? - NO public transportation without another adult if you receive anesthesia. - We recommend that an adult stay with you for 24 hours following discharge. - We also recommend that you do not drive, make important decision, drink alcoholic beverages, or take any drugs that were not prescribed by your health care provider for at least 24 hours after your discharge time. For Pediatric surgeries, we recommend two adults accompany the child home. Follow any additional instructions given to you from your surgeon. VERBAL AND WRITTEN instructions given to _PATIENT and asked if any additional questions and then verbalized understanding. Patient advised to call surgeon office or pre surgery nurse liaison [phone] if any additional questions.
[2025-01-10 14:30] VITALS: BP 127/91; PULSE 83; RESP 18; TEMP 37.1; O2SAT 97; BMI 36.9
[2025-01-19] VITALS (13 sets, daily range): BP systolic 100–130; BP diastolic 60–90; PULSE 68–89; RESP 10–18; TEMP 35.9–36.8; O2SAT 93–100
--- NOTE | ~2025-01-19 | XR_ITS ---
EXAMINATION: [id number] DATE: 01/19/2025 10:21 INDICATION: Postoperative evaluation following left total knee arthroplasty. TECHNIQUE: Anteroposterior and lateral views of the left knee were obtained. COMPARISON: None. FINDINGS: Left total knee arthroplasty without patellar resurfacing appears well seated and in near anatomic al ignment. No fractures identified. 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 Expected postoperative subc utaneous and intra-articular gas. IMPRESSION: 1. Left total knee arthroplasty, negative for postoperative purposes. Reviewed, dictated and finalized at location A.
--- OUTSIDE RECORDS SUMMARY | 2025-01-19 01:33 | XMS_ITS | Referral Summary ---
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 Overview (05/28/2022): Added automatically from request for surgery [id number] Localized osteoarthrosis 07/20/2010 Cubital tunnel syndrome 07/20/2010 [...] on file Legal Sex Male 1:50 AM ARCHIVAL RECORDS CLERK Gender Identity Male 04/23/2022 12:20 PM CDT Sexual Orientation Straight 04/23/2022 12 :20 PM CDT 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 file Not on file Last Filed Vital Signs Vital Sign Reading Time Taken Comments Blood Pressure 107/64 07/01/2022 12:05 PM ARCHIVAL RECORDS CLERK Pulse 69 07/01/2022 12:10 PM ARCHIVAL RECORDS CLERK Temperature 36 C (96.8 F) 07/01/2022 12:10 PM ARCHIVAL RECORDS CLERK Respiratory Rate 14 07/01/2022 12:10 PM ARCHIVAL RECORDS CLERK Oxygen Saturation 97% 07/01/2022 12:10 PM ARCHIVAL RECORDS CLERK Inhaled Oxygen Concentration - - Weight 113.4 kg (250 lb) 02/05/2024 10:31 AM CDT Height 185.4 cm (6' 1) 03/29/2024 2:54 PM CDT Body Mass Index 32.98 02/05/2024 10:31 AM CDT Plan of Treatment Not on file Insurance Fair value [place] [facility] Care Teams Pet Care Attendant Relationship Specialty Start Date End Date Laura James PA [address] [place] [id number] PCP - General Physician Safety Deposit Clerk 04/08/22
--- OUTSIDE RECORDS SUMMARY | 2025-01-19 01:33 | XMS_ITS | Clinical Summary ---
Author Organization [facility] Address [address] [place] [address] Care Team Providers Care Gravel Roofer Name Role Phone Phyllis Friedman PA-C Primary Care Provider [phone] Source Comments [facility],non-owned Affiliates and Associated Physician Practices is amultiple site organization consisting of ambulatory clinics and hospital sitesin [place], [place], [place] and [place]. This disclosure is being madepursuant to the Care Everywhere program and may not contain all information available regarding this patient. Last updated 18.[facility] Allergies No known active allergies Medications * Be aware that medications may not be up to date on this document. Alwaysverify current medications with the patient. diclofenac sodium EC (Voltaren) 75 MG tablet 1 (one) tablet 4 Active CPAP Use as directed Active gabapentin (Neurontin) 300 MG capsule 1 (one) capsule 4 01/06/20 25 Discontinue d(Tx Complete) predniSONE (Deltasone) 20 MG tablet 2 tabs QD for 4 days, then 1 tab QD for 4 days. Then 1/2 tab QD for 4 days. Disp QS 1 tablet 4 01/06/20 25 Discontinue d(Tx Complete) albuterol HFA (ProAir HFA) 108 (90 Base) MCG/ACT inhaler Inhale 2 (two) puffs by mouth every 4 hours as needed 8.5 g 4 01/06/20 25 Discontinue d(Tx Complete) benzonatate (Tessalon Perles) 100 MG capsule Take 1 (one) capsule by mouth 3 times daily as needed for Cough 30 capsule 4 01/06/20 25 Discontinue d(Tx Complete) sulfamethoxazol e-trimethoprim (Bactrim DS; Septra DS) 800-160 MG tablet Take 1 (one) tablet by mouth 2 times daily for 10 days 20 tablet 5 01/16/20 25 Active Problems Problem Noted Date Diagnosed Date Numbness-left foot, going to wash U for back con cerns 05/05/2024 ALON (obstructive sleep apnea) 05/05/2024 Encounters Date Type Department Care Team Description 01/12/2025 12:45 PM CDT Office Visit [address] [address] Phyllis Friedman PA-C Primary osteoarthritis of left knee (Primary Dx); Preop general physical exam; Bug bite, subsequent encounter-resolved 01/05/2025 4:00 PM CDT Office Visit [address] [id number] Phyllis Friedman PA-C Primary osteoarthritis of left [...] Date Recorded Patient Health Questionnaire-2 Score 0 01/12/2025 Sex and Gender Information Value Date Recorded Sex Assigned at Not on file Legal Sex Male 6:34 AM CDT Gender Identity Not on file Sexual Orientation Not on file Last Filed Vital Signs Vital Sign Reading Time Taken Comments Blood Pressure 138/86 01/12/2025 12:49 PM CDT Pulse 93 01/12/2025 12:49 PM CDT Temperature 36.8 C (98.2 F) 01/12/2025 12:49 PM CDT Respiratory Rate - - Oxygen Saturation 98% 01/12/2025 12:49 PM CDT Inhaled Oxygen Concentration - - Weight 126.6 kg (279 lb) 01/12/2025 12:49 PM CDT Height 185.4 cm (6' 1) 01/12/2025 12:49 PM CDT Body Mass Index 36.81 01/12/2025 12:49 PM CDT Plan of Treatment Health Maintenance Due [...] PANEL (CALCIUM TOTAL) Routine 09/21/2024 3:42 PM 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 Hypertension, essential LIPID PROFILE Routine 05/07/2024 3:37 PM CDT Routine health maintenance from Last 3 Months or Most Recently Relevant to Health Maintenance Results * (ABNORMAL) BASIC METABOLIC PANEL (CALCIUM TOTAL) (09/21/2024 3:42 PM [facility]) Pathologist [facility] Glucose 114 70 - 125 mg/dL 09/21/2024 5:40 PM [facility] Sodium 138 136 - 145 mmol/L 09/21/2024 5:40 PM [facility] Potassium 4.0 3.4 - 5.1 mmol/L 09/21/2024 5:40 PM [facility] Chloride 110(H) 98 - 107 mmol/L 09/21/2024 5:40 PM [facility] CO2 20(L) 22 - 29 mmol/L 09/21/2024 5:40 PM [facility] Calcium 8.92 8.4 - 10.2 mg/dL 09/21/2024 5:40 PM [facility] Anion Gap 8 6 - 16 mmol/L 09/21/2024 5:40 PM [facility] BUN 14.2 8.4 - 25.7 mg/dL 09/21/2024 5:40 PM [facility] Creatinine 0.85 0.72 - 1.25 mg/dL 09/21/2024 5:40 PM [facility] eGFR >90 >90 mL/min/1.7 3m2 09/21/2024 5:40 PM [facility] Comment:The GFR result was c alculated using the updated CKD-EPI Creatinine Equation (2020). Blood BLOOD SPECIMEN / Unknown Venipuncture / Unknown 09/21/2024 3:42 PM 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 09/21/2024 3:42 PM [facility] us Onel Henry MD LAB - CHEMISTRY ORDERABLES Fi nal Result [facility] [address] * (ABNORMAL) LIPID PROFILE (05/07/2024 3:37 PM CDT) Pathologist [facility] Cholesterol 252(H) <200 mg/dL 05/07/2024 5:06 PM CDT [facility] Triglycerides 289(H) <150 mg/dL 05/07/2024 5:06 PM T [facility] HDL Cholesterol 31(L) >40 mg/dL 5:06 PM CDT [facility] Chol HDL Ratio 8.1(H) 1.0 - 6.0 05/07/2024 5:06 PM CDT [facility] LDL Calculated 163(H) 65 - 130 mg/dL 05/07/2024 5:06 PM CDT [facility] VLDL Calculated 58(H) <=30 mg/dL 5:06 PM T [facility] Blood BLOOD SPECIMEN / Unknown Venipuncture / Unknown 05/07/2024 3:37 PM CDT 05/07/2024 3:37 PM CDT Narrative [facility] - 05/07/2024 5:06 PM CDT [...] LAB - CHEMISTRY ORDERABLES Fin al Result [facility] [address] from Last 3 Months or Most Recently Relevant to Health Maintenance Insurance [facility] ANTH ANTH ANTHEM ANTHEM Care Teams Gravel Roofer Relationship Specialty Start Date End Date Phyllis Friedman PA-C [address] [place] [address] PCP - General Physician Supervisor Poultry Hatchery 05/05/24
--- OUTSIDE RECORDS SUMMARY | 2025-01-19 01:33 | XMS_ITS | Clinical Summary ---
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 Overview (05/28/2022): Added automatically from request for surgery [id number] Localized osteoarthrosis 07/20/2010 Cubital tunnel syndrome 07/20/2010 [...] on file Legal Sex Male 1:50 AM TROLLEY WORKER Gender Identity Male 04/23/2022 12:20 PM CDT Sexual Orientation Straight 04/23/2022 12 :20 PM CDT 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 file Not on file Obstetrics History Last Filed Vital Signs Vital Sign Reading Time Taken Comments Blood Pressure 107/64 07/01/2022 12:05 PM TROLLEY WORKER Pulse 69 07/01/2022 12:10 PM TROLLEY WORKER Temperature 36 C (96.8 F) 07/01/2022 12:10 PM TROLLEY WORKER Respiratory Rate 14 07/01/2022 12:10 PM TROLLEY WORKER Oxygen Saturation 97% 07/01/2022 12:10 PM TROLLEY WORKER Inhaled Oxygen Concentration - - Weight 113.4 [...] patient's age to complete this topic Insurance [employer] [place] [employer] [place] [facility] Care Teams Piano Mechanic Relationship Specialty Start Date End Date Laura James PA [address] [place] [phone] PCP - General Physician Motorcycle Subassembler 04/08/22
[2025-01-19] MEDS: TRANEXAMIC ACID 1,000MG/ISO100 1,000 MG/100 ML BAG 200 MG IVPB (06:30)
[2025-01-19] MEDS: LACTATED RINGERS 1,000 ML 30 ML IV CONT ×2 (06:30→10:00)
[2025-01-19] MEDS: ACETAMINOPHEN 500 MG TABLET 1000 MG PO (06:30)
--- NOTE | 2025-01-19 06:54 | P.PNAN_ITS ---
Anes - Initial Pre Proc Eval Procedure: Operation Date: 01/19/25 07:30 Proposed Procedures p Left Total Knee Arthroplasty, Right Knee Aspiration and Cortisone Injection - Onel Henry MD Date/Time: 01/19/25 06:54 Surgeon: Onel Henry MD Pre Op Diagnosis: left knee DJD Patient Data Age: 49 Gender: M Height: 1.85 m Weight: 125.2 kg Last Vital Signs Temp 36.2 C L 01/19/25 06:30 Pulse 75 01/19/25 06:30 Resp 16 01/19/25 06:30 BP 117/83 01/19/25 06:30 Pulse Ox 97 01/19/25 06:30 O2 Del Method Room Air 01/19/25 06:30 Allergies Allergy/AdvReac Type Severity Reaction Status Date / Time No Known Allergies Allergy Verified 01/19/25 06:46 Home Medications ?Medication ?Instructions ?Recorded ?Confirmed ?Type cetirizine 10 mg tablet (Zyrtec) 10 mg PO DAILY 06/15/24 01/19/25 History diclofenac sodium 75 mg 75 mg PO BID #60 tabs 10/19/24 01/19/25 Rx tablet,delayed release acetaminophen 650 mg 1,300 mg PO PRN PRN pain 01/10/25 01/13/25 History tablet,extended release (Arthritis Pain Reliever) sulfamethoxazole 800 1 tablet PO Q12H 01/10/25 01/13/25 History mg-trimethoprim 160 mg tablet turmeric 400 mg capsule 400 mg PO DAILY 01/10/25 01/19/25 History chlorhexidine gluconate 4 % 1 applic topical ONCE #237 mL 01/14/25 Rx topical liquid (Hibiclens) Patient hx anesthesia problems: none Family hx anesthesia problems: none Results Review: All pre-operative results and documents have been reviewed as part of the pre- operative evaluation. [facility] Past Medical History Medical History (Updated 01/19/25 @ 06:55 by Kevin Mcneill MD) Obesity Right knee DJD Osteoarthritis of lumbar spine ALON (obstructive sleep apnea) Surgical History Surgical History History of carpal tunnel release History of elbow surgery History of ankle surgery History of mandibular surgery Hx of arthroscopy of right knee 2002 Family History Family History Father Skin cancer (melanoma) Grandparent Skin cancer (melanoma) Other High cholesterol Social History Social History Smoking status: Never smoker Additional smoking assessment comments: DENIES ANY FORM OF TOBACCO USE Alcohol intake: former Drinks per week: 1 Substance use: current Substance use type: does not use Do You Feel Safe in your Home?: Yes Lack of Transportation: No Lack of Food: Never True Current Housing: I Have Housing Concerned About Future Housing: No Difficulty Paying Gas/Electric Bills: No Difficulty Paying for Meds: No Currently Unemployed: No Education: Associate Degree Difficulty w/ Childcare or Family Care: No Living arrangements: with family Occupation/Education: occupation 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 Informed Consent: The patient's anesthetic plan and its attendant risks and benefits were discussed with the patient/family/POA. Questions were solicited and answers provided to the satisfaction of the patient/family/POA.
--- NOTE | 2025-01-19 07:12 | WPDHPUPDATE1 ---
History and Physical Update Update Date/Time: 01/19/25 07:12 History and Physical has been reviewed, including an updated exam of the patient. There are NO changes in the patient's condition. Risks, benefits, and alternatives have been discussed and questions answered. Patient agrees to proceed with procedure.
--- NOTE | 2025-01-19 07:17 | WPDHPUPDATE1 ---
History and Physical Update Update Date/Time: 01/19/25 07:17 History and Physical has been reviewed, including an updated exam of the patient. There are NO changes in the patient's condition. Risks, benefits, and alternatives have been discussed and questions answered. Patient agrees to proceed with procedure. PROCEED WITH LEFT TKA AND ASPIRATION AND INJECTION RIGHT KNEE
--- NOTE | 2025-01-19 07:23 | WPDANESPNB ---
Anes - Peripheral Nerve Block Date/Time: 01/19/25 07:23 I have discussed with the patient/family/POA the placement of a peripheral nerve block for post-operative pain management, including associated risks, benefits, complications, and side effects. Alternative methods of post-operative analgesia were detailed. Questions were solicited and answers provided to the satisfaction of the patient/family/POA. Time-Out: A pre-procedural Time-Out was completed immediately before starting the procedure and confirmed: Patient Identification, Site, Procedure, Patient Position and the Availability of Requisite Equipment. Clinical Indications: Acute post-operative pain management requested by the operative surgeon. Nerve Block Insertion Note Anes-nerve block: adductor canal left Patient position: supine Skin prep: chlorhexidine Needle: 22 gauge, stimulating, insulated echogenic needle. Needle length: 80 mm Technique: ultrasound Injectate: bupivacaine 0.5% with epi 5 mcg/ml (20cc no epi) Observations: tolerated well Complications: none Procedure start time:: 715 Procedure end time:: 721
[2025-01-19] MEDS: ceFAZolin 3 GM/D5W 100 ML 100 ML IVPB (07:26)
[2025-01-19] MEDS: SODIUM CHLORIDE 0.9% IV 37.7 ML, MORPHINE SULFATE INJ (*CRX) 2 MG, ROPivacaine HCL 1% 2... INFILTRATE (08:11)
--- NOTE | 2025-01-19 10:04 | SUR.OPER ---
50 cc fluid aspirated from right knee
--- NOTE | 2025-01-19 10:04 | W.PM.PROC2 ---
Procedure Note - Detailed Date of Procedure 01/19/25 Pre-op Diagnosis LEFT KNEE DJD, RIGHT KNEE EFFUSION Post-op Diagnosis Same Procedure Performed LEFT TKA, RIGHT KNEE ASPIRATION AND INJECTION Surgeon Onel Henry MD Anesthesia General Description of Procedure THE LEFT KNEE WAS PREPPED AND DRAPED IN THE STERILE FASHION. A MIDLINE SKIN INCISION WAS MADE. A MEDIAL PARAPATELLAR ARTHROTOMY WAS MADE. THE PATELLA WAS EVERTED. THERE WAS TRICOMPARTMENT DJD. AN INTRAMEDULLARY ROSALVA WAS PLACED IN THE FEMUR. A DISTAL FEMORAL CUT WAS MADE IN 5 DEGREES OF VALGUS REMOVING APPROXIMATELY 9 MM OF BONE FROM THE DISTAL FEMUR. THE FEMUR WAS SIZED TO 6. A 6 FEMORAL CUTTING BLOCK WAS PLACED IN 3 DEGREES OF EXTERNAL ROTATION AND IN ALIGNMENT WITH CED'S LINE AND THE TRANSEPICONDYLAR AXIS. ANTERIOR POSTERIOR AND CHAMFER CUTS WERE MADE. THE CUTS WERE EXCELLENT. NEXT AN INTRAMEDULLARY CUTTING GUIDE WAS PLACED IN THE TIBIA. A TRANS TIBIAL CUT WAS MADE ALONG THE LONG AXIS OF THE TIBIA. APPROXIMATELY 10 MM OF BONE WAS REMOVED FROM THE HIGH SIDE OF THE TIBIA. THE TIBIA WAS THEN PLANED TO A SMOOTH SURFACE. POSTERIOR FEMORAL OSTEOPHYTES WERE REMOVED FROM THE FEMORAL CONDYLES. A 6 TIBIAL TRIAL WAS PLACED IN ALIGNMENT WITH THE 1/3 MEDIAL ASPECT OF THE TIBIAL TUBERCLE. THEN A 6 FEMORAL TRIAL COMPONENT WAS PLACED. BOTH HAD EXCELLENT FITS. EVENTUALLY AN 11 MM CR POLYETHYLENE TRIAL COMPONENT WAS PLACED. THE KNEE WAS TAKEN THROUGH A RANGE OF MOTION. THE KNEE CAME OUT TO FULL EXTENSION. THERE WAS NO ABNORMAL TILT TO THE PATELLA. THERE WAS GOOD A/P AND VARUS/VALGUS STABILITY. THERE WAS NO EXCESSIVE ROLL BACK WITH FLEXION. THE TRIAL COMPONENTS WERE REMOVED. THEN A PIOTR TRIATHLON 7 FEMORAL COMPONENT AND 7 TIBIAL COMPONENT WITH AN 9 CS POLYETHYLENE COMPONENT WERE PRESS FIT INTO PLACE. THE KNEE WAS TAKEN THROUGH A ROM AGAIN AND FOUND TO BE STABLE WITH NO PATELLA TILT NO EXCESSIVE ROLL BACK WITH FLEXION AND GOOD STABILITY WITH COMPLETE AND FULL EXTENSION. THE KNEE WAS IRRIGATED WITH STERILE BETADINE AND WATER FOR ABOUT 3 MINUTES. THE BLEEDERS WERE CAUTERIZED. THE ARTHROTOMY WAS REPAIRED WITH NUMBER 1 VICRYL. THE SUB CUTANEOUS LAYER WITH 2-0 VICRYL AND THE SKIN WITH 3-0 STRATAFIX AND DERMABOND. A STERILE DRESSING WAS APPLIED. NEXT THE RIGHT KNEE WAS PREPPED STERILE THEN ASPIRATION OF THE KNEE JOINT WAS PREFORMED REMOVING APPROXIMATELY 30 CCs OF CLEAR FLUID. NEXT DEPO MEDROL 80 MG 1CC AND LIDOCAINE 1% 4 CCs WAS INJECTED IN TO THE KNEE JOINT. PATIENT WAS EXTUBATED. Estimated Blood Loss -150.0 Pathology None sent Complications No immediate complications Condition Stable Disposition PACU
[2025-01-19] MEDS: fentaNYL CITRATE INJ (*CRX) 100 MCG/2 ML VIAL 25 MCG IV PUSH ×8 (10:06→10:55)
[2025-01-19] MEDS: SODIUM CHLORIDE 0.9% IV 1,000 ML 125 ML IV CONT (11:56)
[2025-01-19] MEDS: FAMOTIDINE 20 MG TABLET PO ×2 (11:57→20:14)
[2025-01-19] MEDS: ASPIRIN 325 MG ENTERIC TABLET PO ×2 (11:57→20:14)
[2025-01-19] MEDS: ceFAZolin 2 GM/D5W 50 ML 2 GM/50 ML BAG IVPB ×2 (11:57→19:41)
[2025-01-19] MEDS: KETOROLAC 15 MG/ML VIAL (*BKC) IV PUSH ×2 (11:57→17:54)
[2025-01-19] MEDS: polyethylene glycoL 3350 17 GM POWD.PACK PO (11:58)
[2025-01-19] MEDS: SENNA/DOCUSATE SODIUM TABLET 2 TAB PO (11:58)
[2025-01-19] MEDS: WATER FOR IRRIGATION, STERILE 1,000 ML BOTTLE 1000 ML (20:14)
[2025-01-20] MEDS: KETOROLAC 15 MG/ML VIAL (*BKC) IV PUSH ×2 (00:03→04:53)
[2025-01-20 00:44] VITALS: BP 121/69; PULSE 79; RESP 16; TEMP 36.6; O2SAT 95
[2025-01-20] MEDS: ceFAZolin 2 GM/D5W 50 ML 2 GM/50 ML BAG IVPB (04:11)
[2025-01-20 04:28] VITALS: BP 109/76; PULSE 73; RESP 18; TEMP 36.9; O2SAT 97
[2025-01-20 06:01] LABS: Basophils Percent Auto 0.3 % (0.2-1.2); Eosinophils Percent Auto 0.1 % (0-4.4); Hematocrit 37.5 % (42.0-52.0); Hemoglobin 12.3 g/dL (14.0-18.0); Immature Granulocyte Absolute 0.04 K/mm3 (0.00-0.031); Immature Granulocyte Percent A 0.3 % (0-0.5); Mean Corpuscular HGB Conc 32.8 g/dl (32-36); Mean Corpuscular Hemoglobin 30.3 pg (26-34); Mean Corpuscular Volume 92.4 fl (80-100); Mean Platelet Volume 8.9 fl (7.4-10.4); Monocytes Percent Auto 9.1 % (2.6-8.5); Neutrophils Absolute Auto 9.5 K/mm3 (1.3-6.7); Neutrophils Percent Auto 83.2 % (45.5-73.1); Platelet Count Result 266 k/mm3 (150-375); Red Blood Count 4.06 M/mm3 (4.6-6.20); White Blood Count 11.4 K/mm3 (4.5-10.0)
[2025-01-20 06:13] LABS: Anion Gap 7 mmol/L (4-12); Blood Urea Nitrogen 11 mg/dL (9-20); Calcium 8.7 mg/dL (8.4-10.2); Carbon Dioxide 24 mmol/L (22-30); Chloride 106 mmol/L (98-107); Estimated CRCL calculation 113 ml/min; Estimated Glomerular Filt Rate > 60; Glucose 134 mg/dL (65-110); Potassium 4.5 mmol/L (3.4-5.0); Sodium 137 mmol/L (137-145)
[2025-01-20 08:00] VITALS: PULSE 98; RESP 18; O2SAT 100
[2025-01-20 08:15] VITALS: PULSE 72; RESP 20; O2SAT 94
[2025-01-20 08:30] VITALS: BP 141/93; PULSE 98; RESP 18; TEMP 37; O2SAT 100
--- NOTE | 2025-01-20 08:41 | PM.PNORT ---
Progress Note: A&P Assessment and Plan (1) S/P total knee arthroplasty: Qualifiers: Laterality: left Qualified Code(s): Z96.652 - Presence of left artificial knee joint Code(s): Z96.659 - Presence of unspecified artificial knee joint Status: Acute Assessment and Plan: POD #1 : Left TKA Continue PT/OT. WBAT. Walker. HIGH FALL RISK. Continue pain control. Ice Knee. Protect skin. DVT prophylaxis with Aspirin. SCDs. Incentive Spirometry Use reviewed. Monitor Dressing. Change prior to discharge. Bowel Regimen. Dispo: Home with Home Health pending progress with PT/OT Plan Reviewed history, exam, radiographs and current labs with attending MD and covering surgeon, Dr. Henry, who agrees with current plan as indicated above. No further recommendations from Dr. Henry at this time. Time Spent With Patient Time with patient: less than 15 minutes Subjective Subjective Date/Time Seen: 01/20/25 08:41 Post Op day: 1 Principal diagnosis: Left Knee DJD Interval history: POD#1: Left TKA Patient doing well. Working great with PT/OT. Pain well controlled. No new concerns. Review of Systems Review of Systems: All systems reviewed & are unremarkable except as noted in HPI and below Constitutional: Constitutional: Denies fever(s) and Denies headache(s) ENT: Denies headache(s) Cardiovascular: Cardiovascular: Denies chest pain, Denies diaphoresis, Denies palpitations and Denies dyspnea Respiratory: Respiratory: Denies dyspnea Gastrointestinal: Gastrointestinal: Denies abdominal pain, Denies constipation, Denies nausea and Denies vomiting Genitourinary: Genitourinary: Denies dysuria and Reports nocturia Musculoskeletal: Musculoskeletal: Reports arthralgias (Left Knee ), Reports joint swelling (Left Knee ) and Reports limited range of motion (ROM limited due to recent surgical intervention LEFT Knee ) Neurologic: Denies headache(s) Endocrine: Endocrine: Denies palpitations Exam Const: General: comfortable and no acute distress Resp: Effort & Inspection: normal respiratory effort Cardio: Rate: regular rate Rhythm: regular rhythm GI: GI Palp: Yes Soft to palpation, No Tenderness to palpation present (GI) and No Guarding due to palpation present (GI) Skin: General skin exam: wounds noted (see extremity assessment ) Wounds: wounds noted (see extremity assessment ) Neuro: Cognition (Neuro): normal cognition Other: NV intact aside from block. Moves toes. Sensation intact to light touch. +ankle dorsiflexion/plantarflexion. Extrem: Left lower extremity: normal to inspection, normal capillary refill, knee Details: tenderness (diffuse ) Location: of the patella, swelling (moderate consistent to recent surgery ), abnormal ROM (limited due to recent surgery ) Details: pain with active ROM and pain with passive ROM and ecchymosis (as expected with recent surgery. NO hematoma. ), lower leg (Negative Elijah's Sign ), ankle (+ankle dorsiflexion/plantarflexion ) Details: normal to inspection, no edema and normal ROM; no tenderness and no swelling and foot Details: normal capillary refill, toes with normal ROM, vascular exam Details: dorsalis pedis pulse present and motor-sensory exam light-touch normal; no tenderness Other: Incision left TKA dressing c/d/i. No hematoma. No signs of infection. No wound dehiscence. Psych: Mental Status: mental status grossly normal Objective Data Vital Signs Vital Signs: Vital Signs - 24 hr 01/19/25 10:00 01/19/25 10:15 01/19/25 10:30 Temperature 36.3 C L Pulse Rate 83 80 77 Respiratory Rate 16 14 12 Blood Pressure 127/75 125/90 130/83 Pulse Oximetry 96 98 100 Oxygen Delivery Simple Face Mask Simple Face Mask Room Air Oxygen Flow Rate 6 6 01/19/25 10:45 01/19/25 11:00 01/19/25 11:15 Temperature Pulse Rate 84 70 72 Respiratory Rate 16 12 10 L Blood Pressure 130/88 123/78 123/76 Pulse Oximetry 96 93 99 Oxygen Delivery Room Air Room Air Room Air Oxygen Flow Rate 01/19/25 11:22 01/19/25 11:37 01/19/25 12:07 Temperature 35.9 C L 35.9 C L 36.1 C L Pulse Rate 70 69 68 Respiratory Rate 18 18 18 Blood Pressure 115/72 100/60 113/77 Pulse Oximetry 97 96 98 Oxygen Delivery Oxygen Flow Rate 01/19/25 13:07 01/19/25 13:32 01/19/25 14:12 Temperature 36.5 C Pulse Rate 84 Respiratory Rate 18 Blood Pressure 125/72 Pulse Oximetry 98 Oxygen Delivery Room Air Room Air Oxygen Flow Rate 01/19/25 17:07 01/19/25 20:29 01/19/25 21:01 Temperature 36.7 C 36.8 C Pulse Rate 89 81 Respiratory Rate 18 18 Blood Pressure 120/72 116/69 Pulse Oximetry 99 97 Oxygen Delivery Autopap Oxygen Flow Rate 01/20/25 00:44 01/20/25 04:28 Temperature 36.6 C 36.9 C Pulse Rate 79 73 Respiratory Rate 16 18 Blood Pressure 121/69 109/76 Pulse Oximetry 95 97 Oxygen Delivery Oxygen Flow Rate Intake/Output Intake/Output: Intake & Output 01/17/25 01/18/25 01/19/25 01/20/25 23:59 23:59 23:59 23:59 Intake Total 490 400 Balance 490 400 Meds/Results Medications: Active Medications Generic Name Dose Route Start Last Admin Trade Name Freq PRN Reason Stop Dose Admin Acetaminophen 500 mg 01/19/25 11:22 Acetaminophen 500 Mg Tablet PO Q6H PRN Pain Rated 1-3 Aspirin 325 mg 01/19/25 11:22 01/19/25 20:14 Aspirin 325 Mg Enteric Tablet PO 325 mg Q12HR ZUNILDA Administration Diazepam 5 mg 01/19/25 11:22 Diazepam (*Crx) 5 Mg Tablet PO Q8H PRN Spasms Diphenhydramine HCl 25 mg 01/19/25 11:22 Diphenhydramine Hcl Inj 50 Mg/Ml Vial IV PUSH Q6H PRN Itching Famotidine 20 mg 01/19/25 11:22 01/19/25 20:14 Famotidine 20 Mg Tablet PO 20 mg Q12HR ZUNILDA Administration Hydromorphone HCl 1 mg 01/19/25 11:22 Hydromorphone Hcl Inj (*Crx) 1 Mg/Ml Syr IV PUSH Q2H PRN Breakthrough Pain Rated 7-10 or NPO Hydromorphone HCl 0.5 mg 01/19/25 11:22 Hydromorphone Hcl Inj (*Crx) 1 Mg/Ml Syr IV PUSH Q2H PRN Breakthrough Pain Rated 4-6 or NPO Ibuprofen 800 mg in 200 mls @ 400 mls/hr 01/19/25 11:22 Caldolor 800 Mg/200 Ml IVPB Q6H PRN Breakthrough Pain Rated 1-3 or NPO Ketorolac Tromethamine 15 mg 01/19/25 12:00 01/20/25 04:53 Ketorolac 15 Mg/Ml Vial (*Bkc) IV PUSH 01/20/25 12:01 15 mg Q6HR ZUNILDA Administration Naloxone HCl 0.1 mg 01/19/25 11:22 Naloxone Hcl 0.4 Mg/Ml Vial IV PUSH Q2M PRN Opiate Reversal Ondansetron HCl 4 mg 01/19/25 11:22 Ondansetron Inj 4 Mg/2 Ml Vial IV PUSH Q4H PRN Nausea And Vomiting Oxycodone/Acetaminophen 1 tablet 01/19/25 11:22 Oxycodone/Acetaminophen (*Crx) 5-325 Mg Tablet PO Q4H PRN Pain Rated 4-6 Oxycodone/Acetaminophen 1 tab 01/19/25 11:22 Oxycodone/Acetaminophen (*Crx) 10-325 Mg Tablet PO Q6H PRN Pain Rated 7-10 Polyethylene Glycol 17 gm 01/19/25 11:22 01/19/25 11:58 Polyethylene Glycol 3350 17 Gm Powd.Pack PO 17 gm QAM ZUNILDA Administration Senna/Docusate Sodium 2 tab 01/19/25 11:22 01/19/25 17:54 Senna/Docusate Sodium Tablet PO Not Given BID [facility] Radiology Results: ITS Impressions Knee X-Ray 01/19/25 11:15 IMPRESSION: 1. Left total knee arthroplasty, negative for postoperative purposes. Labs Labs: Laboratory Results - last 24 hr 01/20/25 05:40 WBC 11.4 H RBC 4.06 L Hgb 12.3 L D Hct 37.5 L MCV 92.4 MCH 30.3 MCHC 32.8 RDW 13.0 Plt Count 266 MPV 8.9 Immature Gran % (Auto) 0.3 Neut % (Auto) 83.2 H Lymph % (Auto) 7.0 L [place] % (Auto) 9.1 H Eos % (Auto) 0.1 Baso % (Auto) 0.3 Lymph # (Auto) 0.80 L [place] # (Auto) 1.0 H Eos # (Auto) 0.0 Baso # (Auto) 0.0 Abs Immat Gran (auto) 0.04 H Absolute Neuts (auto) 9.5 H Absolute Nucleated RBC 0.000 Nucleated RBC % 0.0 Sodium 137 Potassium 4.5 Chloride 106 Carbon Dioxide 24 Anion Gap 7 BUN 11 D Creatinine 0.99 Estim Creat Clear Calc 113 Estimated GFR > 60 Glucose 134 H Calcium 8.7 Quality VTE Prophylaxis VTE prophylaxis: pharmacologic ordered
--- NOTE | 2025-01-20 08:44 | PM.DS ---
DS: Admitting Diagnosis Discharge Date 01/20/2025 Admitting Diagnosis Left Knee DJD DS: Discharge Diagnosis Discharge Diagnosis (1) S/P total knee arthroplasty: Qualifiers: Laterality: left Qualified Code(s): Z96.652 - Presence of left artificial knee joint Code(s): Z96.659 - Presence of unspecified artificial knee joint Status: Acute Assessment and Plan: POD #1 : Left TKA Continue PT/OT. WBAT. Walker. HIGH FALL RISK. Continue pain control. Ice Knee. Protect skin. DVT prophylaxis with Aspirin. SCDs. Incentive Spirometry Use reviewed. Monitor Dressing. Change prior to discharge. Bowel Regimen. Dispo: Home with Home Health pending progress with PT/OT Plan Reviewed history, exam, radiographs and current labs with attending MD and covering surgeon, Dr. Henry, who agrees with current plan as indicated above. No further recommendations from Dr. Henry at this time. DS: Summary Hospital Course Reason for hospitalization: Left TKA Hospital Course: 49 year old male admitted s/p Left TKA for postoperative medical management, pain control and mobilization with PT/OT. Patient progressed well with PT/OT. Pain and vitals remained stable throughout. The patient has been cleared to be discharged home with home health at this time. All discharge care instructions reviewed at depth. New medications reviewed. Follow up planned for 3 weeks in the outpatient orthopedic clinic with Dr. Henry. Dr. Henry in agreement with safe discharge at this time. Status at Discharge Functional status at discharge: uses cane/walker Overall status at discharge: patient is progressing back to baseline Time Spent with Patient Time attestation: Total time spent providing and/or coordinating discharge services: Exam Const: General: comfortable and no acute distress Resp: Effort & Inspection: normal respiratory effort Cardio: Rate: regular rate Rhythm: regular rhythm Skin: General skin exam: wounds noted (see extremity assessment ) Wounds: wounds noted (see extremity assessment ) Neuro: Cognition (Neuro): normal cognition Other: NV intact aside from block. Moves toes. Sensation intact to light touch. +ankle dorsiflexion/plantarflexion. Extrem: Left lower extremity: normal to inspection, normal capillary refill, knee Details: tenderness (diffuse ) Location: of the patella, swelling (moderate consistent to recent surgery ), abnormal ROM (limited due to recent surgery ) Details: pain with active ROM and pain with passive ROM and ecchymosis (as expected with recent surgery. NO hematoma. ), lower leg (Negative Elijah's Sign ), ankle (+ankle dorsiflexion/plantarflexion ) Details: normal to inspection, no edema and normal ROM; no tenderness and no swelling and foot Details: normal capillary refill, toes with normal ROM, vascular exam Details: dorsalis pedis pulse present and motor-sensory exam light-touch normal; no tenderness Other: Incision left TKA dressing c/d/i. No hematoma. No signs of infection. No wound dehiscence. Psych: Mental Status: mental status grossly normal DS: Data Data Completed and Pending Labs on day of discharge: Labs from last 24 hours 01/20/25 05:40 WBC 11.4 H RBC 4.06 L Hgb 12.3 L D Hct 37.5 L MCV 92.4 MCH 30.3 MCHC 32.8 RDW 13.0 Plt Count 266 MPV 8.9 Immature Gran % (Auto) 0.3 Neut % (Auto) 83.2 H Lymph % (Auto) 7.0 L [place] % (Auto) 9.1 H Eos % (Auto) 0.1 Baso % (Auto) 0.3 Lymph # (Auto) 0.80 L [place] # (Auto) 1.0 H Eos # (Auto) 0.0 Baso # (Auto) 0.0 Abs Immat Gran (auto) 0.04 H Absolute Neuts (auto) 9.5 H Absolute Nucleated RBC 0.000 Nucleated RBC % 0.0 Sodium 137 Potassium 4.5 Chloride 106 Carbon Dioxide 24 Anion Gap 7 BUN 11 D Creatinine 0.99 Estim Creat Clear Calc 113 Estimated GFR > 60 Glucose 134 H Calcium 8.7 Discharge Plan Discharge Patient Disposition: Home with Home Health Service Discharge Instructions: Post Op Total Knee Replacement Instructions Dr. Onel Henry [phone] Your dressing will be changed prior to your discharge. You will be sent home with one additional dressing to be changed on post op day 7 by the home health RN. Your kandy will be removed on the 14th day after surgery and steri-strips will be placed. Please practice good hand hygiene and do not touch your incision in order to prevent infection. You may shower with your dressing but do not submerge in a bath tub. Do not drive or operate machinery until you are released by Dr. Henry. Do not walk without a walker for any reason until you are released by Dr. Henry. Continue to use your ice machine. Please use a towel or pillow case to protect your skin before applying your ice machine. Do NOT place a pillow under your knee. You may use a pillow from the calf down if needed. This will prevent a flexion contracture postoperatively. CPM: You may begin use of your CPM machine at home if you have been given one pre-operatively. DO NOT USE WHILE YOU ARE SLEEPING. ROMTech: If you were given a ROMTech Portable Connect System preoperatively, you are to begin use on the day you arrive home postoperatively. Our goal is for you to use the machine 5 times per day. The sessions are very short in the beginning and will progress as you progress. We are able to monitor your progress from afar as well as your pain and other reported symptoms. If you have difficulties with the machine, please call . 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 Your first post op appointment was sent to you via mail preoperatively. If you have any questions or are unable to make your appointment, please contact our office for scheduling questions. Your medications have been sent to your pharmacy. You have been sent home with pain medication. Please pickle pumper an over the counter stool softener to prevent constipation due to narcotic use. Please keep this in mind during your postoperative recovery. If you are not experiencing regular bowel movements, please contact our office for further instruction. Please contact our office with any questions/concerns regarding your knee at [phone]. Patient Instructions: Antibiotic Form Patient Language: Kiswahili Stand Alone Forms: General Discharge Information Follow-up/Referrals: Onel Henry MD [Physician] - Keep Reg. Scheduled Appt. Discharge Medications: New aspirin 325 mg Tablet,Delayed Release (Dr/Ec) 325 mg PO Q12HR 28 Days Qty: 56 0RF oxycodone-acetaminophen 5-325 mg Tablet 1 tablet PO Q4H PRN (Reason: pain) Qty: 30 0RF Continued cetirizine [Zyrtec] 10 mg Tablet 10 mg PO DAILY sulfamethoxazole-trimethoprim 800-160 mg tablet 1 tablet PO Q12H Patient Comments: STARTED 01/05/25 X 10 DAYS FOR SPIDER BITE turmeric 400 mg capsule 400 mg PO DAILY acetaminophen [Arthritis Pain Reliever] 650 mg tablet extended release 1,300 mg PO PRN PRN (Reason: pain) Held diclofenac sodium 75 mg tablet,delayed release (DR/EC) 75 mg PO BID Qty: 60 3RF Hold Instructions: Resume on 02/17/25. Quality VTE Prophylaxis VTE prophylaxis: pharmacologic ordered
[2025-01-20] MEDS: FAMOTIDINE 20 MG TABLET PO (09:27)
[2025-01-20] MEDS: ASPIRIN 325 MG ENTERIC TABLET PO (09:27)
== END 2025-01-20 10:25 | disposition home or self-care (01) ==
LOC: ANHSURGERY 05:51 → ANH3MEDSUR 11:24
PROVIDERS: Visit Provider Orthopaedic Surgery
PROC: (CPT 27447; principal; 2025-01-19 07:30)
DX: M17.0 Bilateral primary osteoarthritis of knee (principal); M25.762 Osteophyte, left knee; G89.18 Other acute postprocedural pain; M47.896 Other spondylosis, lumbar region; G47.33 Obstructive sleep apnea (adult) (pediatric); E66.9 Obesity, unspecified; Z68.36 Body mass index [BMI] 36.0-36.9, adult; Z98.890 Other specified postprocedural states; Z84.0 Family history of diseases of the skin and subcutaneous tissue
CPT/HCPCS: 64447; 27447; 20610; 36415; 73560; 80048; 85025; 97110; 97116; 97161; 97165; 97530; 97535; A9270; C1713; C1776; J0171; J0690; J1010; J1885; J2003; J2250; J2270; J2405; J2704; J2795; J3010; J7030; J7120